=== PATIENT | female | born 1995 | race Caucasian/White ===

== ENCOUNTER 2017-04-06 09:08 | Emergency (ER) | payer BC ==
[~2017-04-06] VITALS: Ht 160 cm; Wt 56.1 kg
[2017-04-06 09:15] VITALS: TEMP 36.3; Ht 160 cm; Wt 56.1 kg
--- NOTE | 2017-04-06 09:50 | EMERGENCY ROOM VISIT NOTE ---
History Report prepared by Shyam: Halina Johnson Under the Supervision of: Dr. Taco Cross M.D. First contact with patient: 09:29 Chief Complaint: ABDOMINAL PAIN Stated Complaint: SEVERE STOMACH PAINS Nursing Triage Summary: Pt states she is taking antibiotics for a UTI since 04/02. Sat night started having pain in right upper abdomen ("It hurts when I press on it"); some nausea at the beginning of last week but that went away. Last night took a laxative in case she was constipated, but had BM and still has pain. History of Present Illness The patient is a 21 year old female who presents to the Emergency Room with complaints of a constant right sided abdominal pain that began on Thursday night. She currently rates her discomfort as a 7/10 in severity. The patient states that her pain has been worsening throughout the day and feels worse at night. She denies noting any worsening factors. The patient denies having a fever, chills, vomiting, diarrhea, hematochezia, or melena. She states that she took a laxative yesterday and her bowel movements were normal. She notes that before her pain began, she was feeling nauseous. The patient states that on she began taking Bactrim for a Urinary Tract Infection. The patient states that her last normal menstrual period was 3 weeks ago. She notes that she is sexually active, but is not on control. The patient denies a history of cysts or other gynecologic problems. Source of History: patient Onset: Thursday night Position: abdomen (RUQ) Symptom Intensity: 7/10 Timing: constant Modifying Factors (Worsening): other (night time ) Associated Symptoms: + nausea (before pain began), + urinary symptoms ( Urinary tract infection), No fevers, No chills, No vomiting, No melena, No hematochezia, No diarrhea Review of Systems All systems have been listed, reviewed, and are negative other than those previously mentioned. Please see Additional Medical History Sheet. Past Medical & Surgical Medical Problems: (1) Asthma Family History Cancer Diabetes mellitus Hypertension Social History Smoking Status: Never Smoker Smokeless Tobacco Use: No Alcohol Use: none Housing Status: lives with roommate (at school) Current/Historical Medications Scheduled Levofloxacin (Levaquin), 500 MG PO DAILY Sulfa/Trimethoprim (Bactrim Ds 800MG/160MG), 1 TAB PO BID Allergies Coded Allergies: No Known Allergies (Unverified , 04/06/17) Physical Exam Vital Signs Date Time Temp Pulse Resp B/P (MAP) Pulse Ox O2 Delivery O2 Flow Rate FiO2 04/06/17 13:54 95 15 109/68 98 Room Air 04/06/17 12:40 87 15 118/76 97 Room Air 04/06/17 09:15 36.3 91 16 130/85 98 Room Air Physical Exam GENERAL: Patient awake, alert, oriented x 3. Patient follows commands. Patient does not appear toxic. Patient is adequately hydrated and well- nourished. SKIN: Small bruise under right breast. No erythema, pallor, cyanosis or rash. HEENT: Normal head, pupils equal, reactive to light and accommodation. LUNGS: Clear to auscultation. No wheezes, no rales, no rhonchi. HEART: No murmurs. No gallops. No rubs ABDOMEN: Tenderness in right upper quadrant. No masses, no rebound, no hepatomegaly or splenomegaly. EXTREMITIES: No signs of trauma or infection. NEUROLOGIC: Cranial nerves II-XII within normal limits. No gross motor sensory function deficits. Medical Decision & Procedures ER Provider Diagnostic Interpretation: Radiology results as stated below per my review and radiologist interpretation: ULTRASOUND RIGHT UPPER QUADRANT ABDOMEN CLINICAL HISTORY: Right upper quadrant abdominal pain. COMPARISON STUDY: No priors. TECHNIQUE: Real-time, grayscale, and color flow sonography of the right upper quadrant of the abdomen was performed. Images are reviewed in the transverse and longitudinal planes. FINDINGS: Liver: The liver is normal in size and echotexture. There is no intrahepatic biliary ductal dilatation. The main portal vein is patent. Gallbladder: The gallbladder is normal in appearance. No gallstones are identified. There is no gallbladder wall thickening or pericholecystic fluid. A sonographic Robertson's sign is reportedly absent. The common bile duct measures up to 0.3 cm in diameter. Pancreas: Visualized portions of the pancreatic head and body are normal in appearance. The splenic vein is patent. Right kidney: Survey images of the right kidney demonstrate normal size and echotexture. There is no hydronephrosis. Ascites: None. IMPRESSION: Unremarkable sonographic assessment of the right upper quadrant. No gallstones are identified. Electronically signed by: Greg Ascencio M.D. 04/06/2017 11:[address] SCAN OF THE ABDOMEN AND PELVIS WITHOUT IV CONTRAST CLINICAL HISTORY: Right flank pain. COMPARISON STUDY: Right upper quadrant ultrasound dated 04/06/2017. TECHNIQUE: CT scan of the abdomen and pelvis is performed from the lung bases to the proximal femora. Images are reviewed in the axial, sagittal, and coronal planes. IV contrast was not administered for this examination. A dose lowering technique was utilized adhering to the principles of ALARA. CT DOSE: 328.48 mGy.cm FINDINGS: Lung bases: The heart is normal in size and without pericardial effusion. The lung bases are clear. Liver: The unenhanced liver is normal in size, contour, and attenuation. There is no intrahepatic biliary ductal dilatation. Gallbladder: Unremarkable. Spleen: Normal in size and attenuation. Pancreas: Unremarkable. Adrenal glands: Unremarkable. Kidneys: The unenhanced kidneys are normal in size and without hydronephrosis. There are no renal calculi identified. There is no evidence of contour deforming renal mass lesion. Abdominal vasculature: The abdominal aorta is normal in course and caliber. Bowel: There is moderate constipation. No bowel obstruction is seen. The appendix is well-visualized and normal. Peritoneum: There is no intraperitoneal free air or abdominal ascites. There is a small fat-containing umbilical hernia. Lymphadenopathy: None. Pelvic viscera: The bladder, uterus, and adnexa are normal as visualized. Bilateral ovarian follicles are observed. Trace free fluid in the cul-de-sac is likely within physiologic limits. Skeletal structures: No lytic or blastic lesions are seen. There is mild lumbar scoliosis. IMPRESSION: 1. There are no acute infectious or inflammatory findings in the abdomen or pelvis. 2. Moderate constipation. 3. There is trace free fluid in the cul-de-sac, likely within physiologic limits. Electronically signed by: Greg Ascencio M.D. 04/06/2017 2:45 PM Laboratory Results 04/06/17 09:45 04/06/17 09:45 Test 04/06/17 09:45 Red Blood Count 4.93 M/uL (4.2-5.4) Mean Corpuscular Volume 85.2 fL (80-100) Mean Corpuscular Hemoglobin 29.4 pg (25-34) Mean Corpuscular Hemoglobin Concent 34.5 g/dl (32-36) RDW Standard Deviation 40.9 fL (36.4-46.3) RDW Coefficient of Variation 13.2 % (11.5-14.5) Mean Platelet Volume 11.4 fL (7.4-10.4) Urine Color YELLOW Urine Appearance CLOUDY (CLEAR) Urine pH 5.0 (4.5-7.5) Urine Specific [place] 1.018 (1.000-1.030) Urine Protein NEG (NEG) Urine Glucose (UA) NEG (NEG) Urine Ketones NEG (NEG) Urine Occult Blood NEG (NEG) Urine Nitrite NEG (NEG) Urine Bilirubin NEG (NEG) Urine Urobilinogen NEG (NEG) Urine Leukocyte Esterase LARGE (NEG) Urine WBC (Auto) 10-30 /hpf (0-5) Urine RBC (Auto) 0-4 /hpf (0-4) Urine Hyaline Casts (Auto) 1-5 /lpf (0-5) Urine Epithelial Cells (Auto) >30 /lpf (0-5) Urine Bacteria (Auto) NEG (NEG) Urine Test NEG (NEG) Anion Gap 9.0 mmol/L (3-11) Est Creatinine Clear Calc Drug Dose 65.1 ml/min Estimated GFR () 80.2 Estimated GFR (Non- 69.2 BUN/Creatinine Ratio 9.1 (10-20) Calcium Level 9.4 mg/dl (8.5-10.1) Total Bilirubin 0.4 mg/dl (0.2-1) Aspartate Amino Transf (AST/SGOT) 15 U/L (15-37) Alanine Aminotransferase (ALT/SGPT) 18 U/L (12-78) Alkaline Phosphatase 64 U/L (45-117) Total Protein 8.3 gm/dl (6.4-8.2) Albumin 4.5 gm/dl (3.4-5.0) Globulin 3.8 gm/dl (2.5-4.0) Albumin/Globulin Ratio 1.2 (0.9-2) Lipase 314 U/L (73-393) Laboratory results as stated above per my review. Medications Administered Medications (Trade) Dose Ordered Sig/Naye Route Start Time Stop Time Status Last Admin Dose Admin Ceftriaxone Sodium (Rocephin Inj) 1 gm NOW STAT IV 04/06/17 13:23 04/06/17 13:25 DC 04/06/17 13:53 1 GM ED Course 0930: Past medical records reviewed. The patient was evaluated in room B5. A complete history and physical examination was performed. 1321: I reevaluated the patient and she was resting comfortably. 1323: Ordered Rocephin Inj 1gm IV. 1333: I reevaluated the patient and she was resting comfortably. I updated her on her test results and informed her that she needs to have a CT scan at this time. 1500: I reevaluated the patient, who appeared to have improvement of her symptoms. I discussed today's findings with her. The patient verbalized agreement of the treatment plan. The patient is ready to be discharged. Medical Decision Nurses notes reviewed. Medical history sheet reviewed. Differential diagnosis includes but is not limited to: Cholelithiasis, Cholecystitis, Appendicitis, Hepatitis, Ovarian Cyst, Ovarian Torsion, Gastroenteritis. Multiple labs, urinalysis and imaging were performed. Please see above. The patient appears to have a urinary tract infection. There was also concern for a possible stone. CT did not reveal a stone. The patient was given IV Rocephin. We will stop Bactrim and start Levaquin. The patient will need a repeat urinalysis in approximately 10 days to make sure the infection has been eradicated. Medication Reconcilliation Current Medication List: was personally reviewed by me Blood Pressure Screening Patient's blood pressure: Normal blood pressure Blood pressure disposition: Did not require urgent referral Impression Primary Impression: Pyelonephritis Scribe Attestation The scribe's documentation has been prepared under my direction and personally reviewed by me in its entirety. I confirm that the note above accurately reflects all work, treatment, procedures, and medical decision making performed by me. Departure Information Dispostion Home / Self-Care Prescriptions Levofloxacin (Levaquin) 500 Mg Tab 500 MG PO DAILY for 10 Days, #10 TAB Prov: Taco Cross M.D. 04/06/17 Referrals No Doctor, Assigned (PCP) Forms HOME CARE DOCUMENTATION FORM, IMPORTANT VISIT INFORMATION Patient Instructions My [facility], Pyelonephritis Dc Additional Instructions Take 1 Levaquin daily for 10 days. Avoid exercising until you are off Levaquin for 1 week. Drink extra fluids. Repeat urinalysis in 10-to 14 days. Return here sooner if your symptoms are getting worse.
[2017-04-06 10:01] LABS: URINE APPEARANCE CLOUDY (CLEAR); URINE BILIRUBIN NEG (NEG); URINE COLOR YELLOW; URINE EPITHELIAL CELL AUTO >30 /lpf (0-5); URINE NITRITE NEG (NEG); URINE SPECIFIC GRAVITY 1.018 (1.000-1.030); UROBILINOGEN NEG (NEG); ZZUR CULT IF INDIC CLEAN CATCH YES
[2017-04-06 10:02] LABS: MEAN CELL VOLUME 85.2 fL (80-100); MEAN CORPUSCULAR HEMOGLOBIN 29.4 pg (25-34); MEAN CORPUSCULAR HGB CONC 34.5 g/dl (32-36); MEAN PLATELET VOLUME 11.4 fL (7.4-10.4); PLATELET COUNT 175 K/uL (130-400); RED BLOOD COUNT 4.93 M/uL (4.2-5.4); WHITE BLOOD COUNT 9.15 K/uL (4.8-10.8)
[2017-04-06 10:04] LABS: MANUAL MICROSCOPIC REQUIRED? NO; REVIEW REQ? NO
[2017-04-06 10:34] LABS: BUN/CREATININE RATIO 9.1 (10-20); CALCIUM 9.4 mg/dl (8.5-10.1); CREATININE 1.14 mg/dl (0.60-1.20); POTASSIUM 3.7 mmol/L (3.5-5.1)
[2017-04-06 10:37] LABS: ALB/GLOB RATIO 1.2 (0.9-2)
[2017-04-06] MEDS ORDERED: SULF800T23 PO (11:17)
--- NOTE | 2017-04-06 11:54 | DIAGNOSTIC IMAGING REPORT ---
ULTRASOUND RIGHT UPPER QUADRANT ABDOMEN CLINICAL HISTORY: Right upper quadrant abdominal pain. COMPARISON STUDY: No priors. TECHNIQUE: Real-time, grayscale, and color flow sonography of the right upper quadrant of the abdomen was performed. Images are reviewed in the transverse and longitudinal planes. FINDINGS: Liver: The liver is normal in size and echotexture. There is no intrahepatic biliary ductal dilatation. The main portal vein is patent. Gallbladder: The gallbladder is normal in appearance. No gallstones are identified. There is no gallbladder wall thickening or pericholecystic fluid. A sonographic Robertson's sign is reportedly absent. The common bile duct measures up to 0.3 cm in diameter. Pancreas: Visualized portions of the pancreatic head and body are normal in appearance. The splenic vein is patent. Right kidney: Survey images of the right kidney demonstrate normal size and echotexture. There is no hydronephrosis. Ascites: None. IMPRESSION: Unremarkable sonographic assessment of the right upper quadrant. No gallstones are identified. Electronically signed by: Greg Ascencio M.D. 04/06/2017 11:52 AM Dictated Date/Time: 04/06/2017 11:52 AM
[2017-04-06] MEDS ORDERED: CEFTRIAXONE SOD INJ 1 GM ADDVIAL IV STA (13:23)
--- NOTE | 2017-04-06 14:46 | DIAGNOSTIC IMAGING REPORT ---
CT SCAN OF THE ABDOMEN AND PELVIS WITHOUT IV CONTRAST CLINICAL HISTORY: Right flank pain. COMPARISON STUDY: Right upper quadrant ultrasound dated 04/06/2017. TECHNIQUE: CT scan of the abdomen and pelvis is performed from the lung bases to the proximal femora. Images are reviewed in the axial, sagittal, and coronal planes. IV contrast was not administered for this examination. A dose lowering technique was utilized adhering to the principles of ALARA. CT DOSE: 328.48 mGy.cm FINDINGS: Lung bases: The heart is normal in size and without pericardial effusion. The lung bases are clear. Liver: The unenhanced liver is normal in size, contour, and attenuation. There is no intrahepatic biliary ductal dilatation. Gallbladder: Unremarkable. Spleen: Normal in size and attenuation. Pancreas: Unremarkable. Adrenal glands: Unremarkable. Kidneys: The unenhanced kidneys are normal in size and without hydronephrosis. There are no renal calculi identified. There is no evidence of contour deforming renal mass lesion. Abdominal vasculature: The abdominal aorta is normal in course and caliber. Bowel: There is moderate constipation. No bowel obstruction is seen. The appendix is well-visualized and normal. Peritoneum: There is no intraperitoneal free air or abdominal ascites. There is a small fat-containing umbilical hernia. Lymphadenopathy: None. Pelvic viscera: The bladder, uterus, and adnexa are normal as visualized. Bilateral ovarian follicles are observed. Trace free fluid in the cul-de-sac is likely within physiologic limits. Skeletal structures: No lytic or blastic lesions are seen. There is mild lumbar scoliosis. IMPRESSION: 1. There are no acute infectious or inflammatory findings in the abdomen or pelvis. 2. Moderate constipation. 3. There is trace free fluid in the cul-de-sac, likely within physiologic limits. Electronically signed by: Greg Ascencio M.D. 04/06/2017 2:45 PM Dictated Date/Time: 04/06/2017 2:40 PM
[2017-04-06] MEDS ORDERED: LEVO1TAB33 PO (14:55)
[2017-04-06 15:40] VITALS: BP 113/79; PULSE 88; O2SAT 98
--- NOTE | 2017-04-08 18:00 | Pharmacy Progress Note ---
ED Pharmacist Culture FollowUp Date of Service: Apr 08, 2017. Called patient regarding urine culture. Patient sent home with levaquin and to continue her previously prescribed Bactrim for presumed pyelonephritis. Urine culture grew lactobacillus and jovany. Discussed with Dr. Collins. Can stop both Bactrim and levaquin at this time. If the patient continues to have upper quadrant pain, can call in RX for fluconazole 200mg q24 X 14 days. If symptoms have improved, can call in just a one time 150mg fluconazole dose. Left a voicemail for patient to call back.
== END 2017-04-06 15:40 | disposition home or self-care (01) ==
LOC: C.EDB 09:10
DX: N12 Tubulo-interstitial nephritis, not specified as acute or chronic (principal); J45.909 Unspecified asthma, uncomplicated; Z79.899 Other long term (current) drug therapy; Z80.9 Family history of malignant neoplasm, unspecified; Z83.3 Family history of diabetes mellitus; Z82.49 Family history of ischemic heart disease and other diseases of the circulatory system